=== PATIENT | female | born 1985 | race Caucasian/White ===

== ENCOUNTER 2016-06-26 19:13 | Emergency (ER) | payer OTHER ==
[~2016-06-26] VITALS: Ht 160 cm; Wt 68.5 kg
[~2016-06-26 19:13] MED LIST: ACULAR 0.5100 DROP/5 LEFT EYE; ATARAX,VISTARIL50 MG PO; CARAFATE1 GM PO; CIPRO500 MG PO; HYCODAN SYRUP480 ML PO; LEVAQUIN500 MG PO; MICROGESTIN FE1 EAC1 PO; PEPCID20 MG PO; POLYTRIM EYE DR10 ML LEFT EYE; PREDNISONE20 MG PO; TESSALON200 MG PO; VENTOLIN HFA18 GM IH; VIGAMOX 0.60 DROP/3 LEFT EYE; ZITHROMAX Z-PA250 MG PO; ZOFRAN4 MG PO
[2016-06-26] MEDS ORDERED: PREDNISONE20 MG PO (20:19)
[2016-06-26] MEDS ORDERED: FLONASE16 G1 BOTH NARES (20:19)
[2016-06-26] MEDS ORDERED: TESSALON PERLE100 MG PO (20:19)
[2016-06-26] MEDS ORDERED: VENTOLIN HFA18 GM IH (20:35)
[2016-06-26 21:12] VITALS: BP 165/93
== END 2016-06-26 21:14 | disposition home or self-care (01) ==
LOC: EXP 19:13 → EME 19:13 → EXP 21:14
DX: J06.9 Acute upper respiratory infection, unspecified (principal); J20.8 Acute bronchitis due to other specified organisms
CPT/HCPCS: 71020; 99281; 99284; J7512

== ENCOUNTER 2017-05-17 12:00 | Outpatient (CLI) | payer OTHER ==
[~2017-05-17] VITALS: Ht 160 cm; Wt 78.0 kg
[~2017-05-17 12:00] MED LIST changes: +FLONASE16 G1 BOTH NARES; +PRENATAL TABLE1 EACH PO; +TESSALON PERLE100 MG PO
[2017-05-17 12:13] VITALS: BP 127/84
[2017-05-17 12:30] VITALS: BP 141/81
[2017-05-17 12:49] LABS: BASOPHIL (%) 0.3 % (0-1); EOSINOPHIL (%) 0.4 % (0-5); EOSINOPHIL COUNT 0.1 K/uL (0-0.3); HEMATOCRIT 33.5 % (36.0-46.0); HEMOGLOBIN 10.7 G/DL (11.9-15.5); IMMATURE GRANULOCYTE (%) 1.4 % (0.0-0.7); LYMPHOCYTE (%) 14.2 % (15-42); LYMPHOCYTE COUNT 1.7 K/uL (1.0-2.8); MCHC 31.9 G/DL (30.0-36.0); MCV 84.4 FL (83-99); MONOCYTE COUNT 1.1 K/uL (0-0.8); NEUTROPHIL (%) 74.7 % (45-76); NEUTROPHIL COUNT 8.8 K/uL (1.8-6.4); PLATELET COUNT 202 K/uL (156-360); RBC DIS.WIDTH-CV 13.1 % (11.8-14.6); RBC DIS.WIDTH-SD 39.9 % (39-53); RED BLOOD COUNT 3.97 M/uL (3.80-5.20); WHITE BLOOD COUNT 11.7 K/uL (4.1-10.2)
[2017-05-17 12:51] VITALS: BP 136/86
[2017-05-17 13:19] LABS: UR CREATININE CONCENTRATION 147.8 MG/DL
[2017-05-17 13:19] LABS: ALBUMIN 3.1 G/DL (3.2-4.8); ALKALINE PHOSPHATASE 103 IU/L (3-129); ALT (GPT) 6 IU/L (3-49); AST (GOT) 7 IU/L (2-34); CHLORIDE 105 MEQ/L (99-109); CREATININE 0.6 MG/DL (0.6-1.3); GFR ESTIMATE (CALCULATED) > 59 mL/min/; GLUCOSE 77 mg/dL (70-99); LACTATE DEHYDROGENASE 115 IU/L (20-246); POTASSIUM 4.1 MEQ/L (3.7-5.4); SODIUM 136 MEQ/L (136-147); TOTAL BILIRUBIN 0.2 MG/DL (0.0-1.0); TOTAL PROTEIN 5.8 G/DL (6.4-8.3); UREA NITROGEN (BUN) 6 mg/dL (9-23)
[2017-05-17 13:29] VITALS: BP 132/78
== END 2017-05-17 14:10 | disposition home or self-care (01) ==
LOC: LDRP-OP 12:00 → 2WEST 12:02 → LDRP-OP 08-07 19:29
PROVIDERS: Advanced Practice Midwife
DX: O60.03 Preterm labor without delivery, third trimester (principal); Z3A.32 32 weeks gestation of pregnancy
CPT/HCPCS: 59025; 80053; 82570; 83615; 84156; 84550; 85025; G0378

== ENCOUNTER 2017-05-25 14:15 | Outpatient (CLI) | payer OTHER ==
[2017-05-25 14:37] VITALS: BP 119/70
[2017-05-25 15:00] VITALS: BP 108/63
[2017-05-25 15:01] LABS: BASOPHIL (%) 0.2 % (0-1); EOSINOPHIL (%) 0.4 % (0-5); EOSINOPHIL COUNT 0.1 K/uL (0-0.3); HEMATOCRIT 34.3 % (36.0-46.0); HEMOGLOBIN 10.9 G/DL (11.9-15.5); IMMATURE GRANULOCYTE (%) 2.1 % (0.0-0.7); LYMPHOCYTE (%) 12.5 % (15-42); LYMPHOCYTE COUNT 1.6 K/uL (1.0-2.8); MCH 26.7 PG (29.0-34.0); MCHC 31.8 G/DL (30.0-36.0); MCV 84.1 FL (83-99); MONOCYTE (%) 8.5 % (3-12); MONOCYTE COUNT 1.1 K/uL (0-0.8); NEUTROPHIL (%) 76.3 % (45-76); PLATELET COUNT 200 K/uL (156-360); RBC DIS.WIDTH-CV 13.1 % (11.8-14.6); RED BLOOD COUNT 4.08 M/uL (3.80-5.20); WHITE BLOOD COUNT 13.1 K/uL (4.1-10.2)
[2017-05-25 15:19] VITALS: BP 104/75
[2017-05-25 15:19] LABS: ALBUMIN 3.1 G/DL (3.2-4.8); ALKALINE PHOSPHATASE 112 IU/L (3-129); ALT (GPT) 8 IU/L (3-49); AST (GOT) 8 IU/L (2-34); CHLORIDE 107 MEQ/L (99-109); CREATININE 0.5 MG/DL (0.6-1.3); GFR ESTIMATE (CALCULATED) > 59 mL/min/; GLUCOSE 77 mg/dL (70-99); LACTATE DEHYDROGENASE 104 IU/L (20-246); POTASSIUM 3.9 MEQ/L (3.7-5.4); SODIUM 136 MEQ/L (136-147); TOTAL BILIRUBIN 0.2 MG/DL (0.0-1.0); TOTAL PROTEIN 6.2 G/DL (6.4-8.3); UREA NITROGEN (BUN) 5 mg/dL (9-23)
[2017-05-25 15:24] LABS: APPEARANCE CLOUDY ((CLEAR)); BILIRUBIN NEGATIVE; BLOOD SMALL; COLOR YELLOW ((YELLOW)); GLUCOSE (STRIP) NEGATIVE; KETONES NEGATIVE; LEUKOCYTES LARGE; NITRITE NEGATIVE; PROTEIN (STRIP) NEGATIVE; SPECIFIC GRAVITY 1.011 (1.000-1.030); UROBILINOGEN 0.2 MG/DL (0.2-1.0)
[2017-05-25 15:44] LABS: UR CREATININE CONCENTRATION 113.6 MG/DL
[2017-05-25 15:57] LABS: BACTERIA 2+ /HPF; EPITHELIAL CELLS 2+ /HPF; MUCUS NONE SEEN /LPF; UCUL ADDED? YES; WHITE BLOOD CELLS 20-30 /HPF (0-5)
== END 2017-05-25 17:30 | disposition home or self-care (01) ==
LOC: LDRP-OP 14:15 → 2WEST 14:17 → LDRP-OP 08-07 14:20
PROVIDERS: Advanced Practice Midwife
DX: O13.3 Gestational [pregnancy-induced] hypertension without significant proteinuria, third trimester (principal); Z3A.33 33 weeks gestation of pregnancy
CPT/HCPCS: 59025; 80053; 81003; 82570; 83615; 84156; 84550; 85025; 85384; 87086; G0378; J7120

== ENCOUNTER 2017-06-23 14:04 | Outpatient (CLI) | payer OTHER ==
[~2017-06-23] VITALS: Ht 160 cm; Wt 82.1 kg
[2017-06-23 14:21] VITALS: BP 127/77
[2017-06-23 14:44] VITALS: BP 129/87
[2017-06-23 15:09] LABS: BASOPHIL (%) 0.2 % (0-1); EOSINOPHIL (%) 0.4 % (0-5); EOSINOPHIL COUNT 0.1 K/uL (0-0.3); HEMATOCRIT 33.9 % (36.0-46.0); HEMOGLOBIN 10.7 G/DL (11.9-15.5); IMMATURE GRANULOCYTE (%) 1.9 % (0.0-0.7); LYMPHOCYTE (%) 11.5 % (15-42); LYMPHOCYTE COUNT 1.6 K/uL (1.0-2.8); MCH 26.6 PG (29.0-34.0); MCHC 31.6 G/DL (30.0-36.0); MCV 84.1 FL (83-99); MONOCYTE (%) 9.2 % (3-12); MONOCYTE COUNT 1.3 K/uL (0-0.8); NEUTROPHIL (%) 76.8 % (45-76); NEUTROPHIL COUNT 10.6 K/uL (1.8-6.4); PLATELET COUNT 189 K/uL (156-360); RBC DIS.WIDTH-SD 42.6 % (39-53); RED BLOOD COUNT 4.03 M/uL (3.80-5.20); WHITE BLOOD COUNT 13.8 K/uL (4.1-10.2)
[2017-06-23 15:18] LABS: CHLORIDE 105 MEQ/L (99-109); SODIUM 135 MEQ/L (136-147); TOTAL BILIRUBIN 0.3 MG/DL (0.0-1.0)
[2017-06-23 15:19] VITALS: BP 124/82
[2017-06-23 15:24] LABS: ALKALINE PHOSPHATASE 130 IU/L (3-129); ALT (GPT) 6 IU/L (3-49); AST (GOT) 9 IU/L (2-34); CREATININE 0.5 MG/DL (0.6-1.3); GFR ESTIMATE (CALCULATED) > 59 mL/min/; GLUCOSE 71 mg/dL (70-99); LACTATE DEHYDROGENASE 105 IU/L (20-246); TOTAL PROTEIN 6.2 G/DL (6.4-8.3); UREA NITROGEN (BUN) 7 mg/dL (9-23); URIC ACID 3.2 mg/dL (3.1-9.2)
[2017-06-23 15:32] LABS: UR CREATININE CONCENTRATION 235.2 MG/DL
== END 2017-06-23 16:30 | disposition home or self-care (01) ==
LOC: LDRP-OP 14:04 → 2WEST 14:05 → LDRP-OP 08-07 21:24
PROVIDERS: Advanced Practice Midwife
DX: O16.3 Unspecified maternal hypertension, third trimester (principal); Z3A.37 37 weeks gestation of pregnancy; O26.893 Other specified pregnancy related conditions, third trimester; O47.1 False labor at or after 37 completed weeks of gestation; R10.11 Right upper quadrant pain
CPT/HCPCS: 59025; 80053; 82570; 83615; 84156; 84550; 85025; G0378

== ENCOUNTER 2017-07-04 07:49 | Inpatient (IN) | payer OTHER ==
[2017-07-04] VITALS (18 sets, daily range): BP systolic 116–151; BP diastolic 56–87
[~2017-07-04] VITALS: Ht 160 cm; Wt 81.8 kg
[2017-07-04 10:15] LABS: BASOPHIL (%) 0.3 % (0-1); EOSINOPHIL (%) 0.4 % (0-5); EOSINOPHIL COUNT 0.1 K/uL (0-0.3); HEMATOCRIT 32.8 % (36.0-46.0); HEMOGLOBIN 10.2 G/DL (11.9-15.5); IMMATURE GRANULOCYTE (%) 1.7 % (0.0-0.7); LYMPHOCYTE (%) 11.7 % (15-42); LYMPHOCYTE COUNT 1.8 K/uL (1.0-2.8); MCH 25.8 PG (29.0-34.0); MCHC 31.1 G/DL (30.0-36.0); MONOCYTE (%) 8.9 % (3-12); MONOCYTE COUNT 1.3 K/uL (0-0.8); NEUTROPHIL COUNT 11.7 K/uL (1.8-6.4); PLATELET COUNT 201 K/uL (156-360); RBC DIS.WIDTH-CV 14.1 % (11.8-14.6); RBC DIS.WIDTH-SD 42.3 % (39-53); RED BLOOD COUNT 3.95 M/uL (3.80-5.20); WHITE BLOOD COUNT 15.1 K/uL (4.1-10.2)
[2017-07-04 10:33] LABS: ALKALINE PHOSPHATASE 144 IU/L (3-129); ALT (GPT) 6 IU/L (3-49); AST (GOT) 8 IU/L (2-34); CHLORIDE 107 MEQ/L (99-109); CREATININE 0.6 MG/DL (0.6-1.3); GFR ESTIMATE (CALCULATED) > 59 mL/min/; GLUCOSE 81 mg/dL (70-99); LACTATE DEHYDROGENASE 123 IU/L (20-246); POTASSIUM 4.3 MEQ/L (3.7-5.4); SODIUM 135 MEQ/L (136-147); TOTAL BILIRUBIN 0.3 MG/DL (0.0-1.0); TOTAL PROTEIN 5.6 G/DL (6.4-8.3); UREA NITROGEN (BUN) 5 mg/dL (9-23); URIC ACID 3.2 mg/dL (3.1-9.2)
[2017-07-04 10:41] LABS: UR CREATININE CONCENTRATION 154.6 MG/DL
[2017-07-05 07:03] LABS: BASOPHIL (%) 0.1 % (0-1); EOSINOPHIL (%) 0.3 % (0-5); EOSINOPHIL COUNT 0.1 K/uL (0-0.3); HEMATOCRIT 29.8 % (36.0-46.0); HEMOGLOBIN 9.4 G/DL (11.9-15.5); IMMATURE GRANULOCYTE (%) 1.4 % (0.0-0.7); LYMPHOCYTE (%) 9.3 % (15-42); LYMPHOCYTE COUNT 1.6 K/uL (1.0-2.8); MCHC 31.5 G/DL (30.0-36.0); MCV 82.3 FL (83-99); MONOCYTE (%) 7.6 % (3-12); MONOCYTE COUNT 1.4 K/uL (0-0.8); NEUTROPHIL (%) 81.3 % (45-76); NEUTROPHIL COUNT 14.4 K/uL (1.8-6.4); PLATELET COUNT 186 K/uL (156-360); RBC DIS.WIDTH-SD 41.6 % (39-53); RED BLOOD COUNT 3.62 M/uL (3.80-5.20); WHITE BLOOD COUNT 17.7 K/uL (4.1-10.2)
[2017-07-05 07:14] VITALS: BP 162/75
[2017-07-05 11:42] VITALS: BP 142/77
[2017-07-05 14:52] VITALS: BP 137/69
[2017-07-05 19:55] VITALS: BP 129/69
[2017-07-06] MEDS ORDERED: IBUPROFEN800 MG PO (10:26)
[2017-07-06] MEDS ORDERED: HEMOCYTE324 MG PO (10:27)
== END 2017-07-06 13:55 | disposition home or self-care (01) | DRG 775 ==
LOC: LDRP-OP 07:49 → 2WEST 07:50 → LDRP-OP 22:48 → 2WEST 07-06 13:55 → LDRP-OP 08-07 17:56
PROVIDERS: Advanced Practice Midwife
DX: O13.4 Gestational [pregnancy-induced] hypertension without significant proteinuria, complicating childbirth (principal); O70.0 First degree perineal laceration during delivery; O99.344 Other mental disorders complicating childbirth; F32.9 Major depressive disorder, single episode, unspecified; F41.9 Anxiety disorder, unspecified; O99.02 Anemia complicating childbirth; D62 Acute posthemorrhagic anemia; E66.3 Overweight; Z3A.39 39 weeks gestation of pregnancy; Z37.0 Single live birth
CPT/HCPCS: 80053; 82570; 83615; 84156; 84550; 85025; J0595; J7120

== ENCOUNTER 2017-09-09 09:36 | Emergency (ER) | payer OTHER ==
[~2017-09-09] VITALS: Ht 160 cm; Wt 71.2 kg
[~2017-09-09 09:36] MED LIST changes: +HEMOCYTE324 MG PO; +IBUPROFEN800 MG PO
[2017-09-09 10:47] LABS: APPEARANCE SL.HAZY ((CLEAR)); BILIRUBIN NEGATIVE; BLOOD NEGATIVE; COLOR YELLOW ((YELLOW)); GLUCOSE (STRIP) NEGATIVE; KETONES NEGATIVE; LEUKOCYTES NEGATIVE; NITRITE NEGATIVE; PROTEIN (STRIP) NEGATIVE; SPECIFIC GRAVITY 1.011 (1.000-1.030)
[2017-09-09 10:53] LABS: BACTERIA RARE /HPF; EPITHELIAL CELLS 3+ /HPF; MUCUS 1+ /LPF; RED BLOOD CELLS 0-5 /HPF (0-5); UCUL ADDED? YES
[2017-09-09 11:28] LABS: HEMATOCRIT 37.9 % (36.0-46.0); MCH 26.1 PG (29.0-34.0); MCHC 31.7 G/DL (30.0-36.0); MCV 82.6 FL (83-99); RBC DIS.WIDTH-CV 14.8 % (11.8-14.6); RBC DIS.WIDTH-SD 44.8 % (39-53); RED BLOOD COUNT 4.59 M/uL (3.80-5.20)
[2017-09-09 11:41] LABS: CHLORIDE 108 mEq/L (99-109); POTASSIUM 3.6 mEq/L (3.7-5.4); SODIUM 142 mEq/L (136-147)
[2017-09-09 11:42] LABS: GLUCOSE 121 mg/dL (70-99)
[2017-09-09 11:46] LABS: CREATININE 0.8 mg/dL (0.6-1.3); GFR ESTIMATE (CALCULATED) > 59 mL/min/
[2017-09-09 11:47] LABS: UREA NITROGEN (BUN) 4 mg/dL (9-23)
[2017-09-09 12:25] LABS: PLAT.SUFFICIENCY ADEQUATE; PLATELET COUNT 281 K/uL (156-360)
[2017-09-09] MEDS ORDERED: MOTRIN600 MG PO (12:57)
[2017-09-09] MEDS ORDERED: ZOFRAN4 MG PO (12:57)
[2017-09-09] MEDS ORDERED: KEFLEX500 MG PO (12:57)
[2017-09-09 13:14] VITALS: BP 158/108
== END 2017-09-09 13:16 | disposition home or self-care (01) ==
LOC: EME 09:36
PROVIDERS: Physician Assistant
DX: N20.0 Calculus of kidney (principal); N39.0 Urinary tract infection, site not specified; M79.7 Fibromyalgia; F32.9 Major depressive disorder, single episode, unspecified; Z87.440 Personal history of urinary (tract) infections; Z88.6 Allergy status to analgesic agent
CPT/HCPCS: 74176; 80048; 81003; 81025; 85027; 87086; 99281; 99284; J0696

== ENCOUNTER 2017-09-17 11:06 | Emergency (ER) | payer OTHER ==
[~2017-09-17] VITALS: Ht 160 cm; Wt 71.6 kg
[~2017-09-17 11:06] MED LIST changes: +KEFLEX500 MG PO; +MOTRIN600 MG PO
[2017-09-17 11:51] LABS: HEMATOCRIT 43.2 % (36.0-46.0); HEMOGLOBIN 13.3 G/DL (11.9-15.5); MCH 25.5 PG (29.0-34.0); MCHC 30.8 G/DL (30.0-36.0); MCV 82.8 FL (83-99); RBC DIS.WIDTH-CV 14.6 % (11.8-14.6); RBC DIS.WIDTH-SD 44.3 % (39-53); RED BLOOD COUNT 5.22 M/uL (3.80-5.20); WHITE BLOOD COUNT 7.2 K/uL (4.1-10.2)
[2017-09-17 12:01] LABS: CHLORIDE 107 mEq/L (99-109); POTASSIUM 4.9 mEq/L (3.7-5.4); SODIUM 140 mEq/L (136-147)
[2017-09-17 12:03] LABS: GLUCOSE 103 mg/dL (70-99)
[2017-09-17 12:07] LABS: CREATININE 0.8 mg/dL (0.6-1.3); GFR ESTIMATE (CALCULATED) > 59 mL/min/
[2017-09-17 12:08] LABS: UREA NITROGEN (BUN) 7 mg/dL (9-23)
[2017-09-17 12:10] LABS: APPEARANCE SL.HAZY ((CLEAR)); BILIRUBIN NEGATIVE; BLOOD NEGATIVE; COLOR YELLOW ((YELLOW)); GLUCOSE (STRIP) NEGATIVE; KETONES NEGATIVE; LEUKOCYTES NEGATIVE; NITRITE NEGATIVE; PROTEIN (STRIP) NEGATIVE; SPECIFIC GRAVITY 1.016 (1.000-1.030); UROBILINOGEN 0.2 MG/DL (0.2-1.0)
[2017-09-17 12:16] LABS: BACTERIA RARE /HPF; CALCIUM OXALATE CRYSTALS 1+ /HPF; EPITHELIAL CELLS 1+ /HPF; MUCUS TRACE /LPF; RED BLOOD CELLS 0-5 /HPF (0-5); UCUL ADDED? NO; WHITE BLOOD CELLS 0-5 /HPF (0-5)
[2017-09-17 12:35] LABS: PLAT.SUFFICIENCY ADEQUATE; PLATELET COUNT 268 K/uL (156-360)
[2017-09-17 12:51] LABS: ALBUMIN 4.1 g/dL (3.2-4.8)
[2017-09-17 12:54] LABS: TOTAL PROTEIN 7.3 g/dL (6.4-8.3)
[2017-09-17 12:56] LABS: TOTAL BILIRUBIN 0.4 mg/dL (0.0-1.0)
[2017-09-17 12:57] LABS: ALKALINE PHOSPHATASE 81 IU/L (3-129)
[2017-09-17 12:59] LABS: AST (GOT) 12 IU/L (2-34); DIRECT BILIRUBIN 0.2 mg/dL (0.0-0.3)
[2017-09-17 13:00] LABS: ALT (GPT) 17 IU/L (3-49); LIPASE 13 U/L (1.0-51.0)
[2017-09-17 13:27] LABS: QUANTITATIVE HCG < 4.0 MIU/ML
[2017-09-17] MEDS ORDERED: ULTRAM50 MG PO (17:10)
[2017-09-17 17:28] VITALS: BP 142/76
== END 2017-09-17 17:38 | disposition home or self-care (01) ==
LOC: EME 11:06
DX: R10.9 Unspecified abdominal pain (principal); O99.345 Other mental disorders complicating the puerperium; F53 Mental and behavioral disorders associated with the puerperium, not elsewhere classified; F41.9 Anxiety disorder, unspecified; Z87.442 Personal history of urinary calculi; Z87.440 Personal history of urinary (tract) infections; M79.7 Fibromyalgia; Z88.6 Allergy status to analgesic agent; Z90.49 Acquired absence of other specified parts of digestive tract
CPT/HCPCS: 74176; 80048; 80076; 81003; 83690; 84702; 85027; 85379; 99281; 99285